=== PATIENT | female | born 1965 | race Caucasian/White ===

== ENCOUNTER 2018-12-27 16:08 | Emergency (ER) | payer BC, OTHER ==
--- NOTE | 2018-12-27 16:53 | ED ---
Psychiatric Complaint - HPI Summary HPI Summary: This pt is a 53 y/o female presenting to [facility] via EMS on a 9.41 for depression and possible overdose. Per EMS pt was found passed out by the enterprise architect. Pt admits to drinking a bottle of wine. She is unable to report if she took more pills than her regular medication. Per nurse's note, pt took too many wellbutrin pills (prescription filled on 12/25/18, 8 pills). Pt denies abd pain. Per nurse's note "pt states she wanted to drink herself to and drank wine and her regular wellbutrin dose." Per father, he spoke to the pt this morning and everything was fine. PMHx: depression for which she takes medications and states she takes "two" a day. Pt notes she lives alone with her 2 dogs. HPI IS LIMITED DUE TO LEVEL 5 CAVEAT - alcohol intoxication - History Of Current Complaint Chief Complaint: EDMentalHealth Time Seen by Provider: 12/27/18 16:24 Hx Obtained From: Patient, Family/Analytics Consultant - father, EMS Hx From Patient Unobtainable Due To: Other - level 5 caveat - alcohol intoxication Onset/Duration: Lasting Hours, Still Present Severity Currently: Moderate Character: Depressed Aggravating Factor(s): Alcohol Use, Drug Use Alleviating Factor(s): Nothing Related History: Positive For: Prior Psychiatric Issues Has Suicidal: Reports: Demonstrates Gesture - Allergies/Home Medications Allergies/Adverse Reactions: Allergies Allergy/AdvReac Type Severity Reaction Status Date / Time Penicillins Allergy Swelling Verified 12/27/18 17:01 Of Face,Lips,& Throat Home Medications: Home Medications Bisoprolol/Hydrochlorothiazide [Bisoprolol-Hctz 2.5-6.25 mg Tb] 1 tab PO DAILY 12/27/18 [History Confirmed 12/27/18] Citalopram TAB* [CeleXA TAB*] 30 mg PO DAILY 12/27/18 [History Confirmed ] buPROPion TAB* [Wellbutrin TAB*] 75 mg PO BID 12/27/18 [History Confirmed ] PMH/Surg Hx/FS Hx/Imm Hx Cardiovascular History: Denies: Other Cardiovascular Problems/Disorders Respiratory History: Denies: Other Respiratory Problems/Disorders GI History: Denies: Other GI Disorders History: Reports: Hx Kidney Stones - 2008; 12/11 Sensory History: Denies: Hx Contacts or Glasses, Hx Hearing Aid Opthamlomology History: Denies: Hx Contacts or Glasses Neurological History: Denies: Other Neuro Impairments/Disorders Psychiatric History: Reports: Hx Anxiety - ON MEDS Denies: Hx of Violent Episodes Against Others - Surgical History Surgery Procedure, Year, and Place: 2010, [facility], GASTRIC BYPASS. LEFT KNEE, 2005 , [facility]. RIGHT KNEE 1999, [facility]. ESWL, 2009 X2, [facility] Hx Anesthesia Reactions: No Infectious Disease History: No Infectious Disease History: Denies: Traveled Outside the [place] in Last 30 Days - Family History Family History: paternal grandmother with colon CA - Social History Alcohol Use: Daily Alcohol Amount: Drinks a bottle of wine a day Substance Use Type: Reports: None Smoking Status (MU): Never Smoked Tobacco Review of Systems - ROS Summary Review of Systems Summary: HPI IS LIMITED DUE TO LEVEL 5 CAVEAT - alcohol intoxication Negative: Fever Negative: Abdominal Pain Positive: Depressed All Other Systems Reviewed And Are Negative: No Physical Exam - Summary Physical Exam Summary: Appearance: Well appearing, no pain distress Skin: warm, dry, reflects adequate perfusion Head/face: normal Eyes: EOMI, CELESTE ENT: normal Neck: supple, nontender Respiratory: CTA, breath sounds present Cardiovascular: RRR, pulses symmetrical Abdomen: nontender, soft Musculoskeletal: normal, strength/ROM intact Neuro: normal, sensory motor intact, A&[id number] Psych: depressed affect Triage Information Reviewed: Yes Vital Signs On Initial Exam: Initial Vitals Temp Pulse Resp BP Pulse Ox 98.6 F 91 18 174/125 98 12/27/18 16:14 12/27/18 16:14 12/27/18 16:14 12/27/18 16:14 12/27/18 16:14 Vital Signs Reviewed: Yes Completion Of Physical Exam Limited Due To: Level 5 - alcohol intoxication Diagnostics - Vital Signs Vital Signs Temp Pulse Resp BP Pulse Ox 12/27/18 16:14 98.6 F 91 18 174/125 98 - Laboratory Result Diagrams: 12/27/18 16:40 12/27/18 16:40 Lab Statement: Any lab studies that have been ordered have been reviewed, and results considered in the medical decision making process. - EKG 16:51 Cardiac Rate: NL - at 74 bpm EKG Rhythm: Sinus Rhythm Summary of EKG Findings: No acute changes. Course/Dx - Course Assessment/Plan: Pt is a 53 y/o female who presents via EMS on a 9.41 for depression and possible overdose on Wellbutrin. Pt admits to drinking a bottle of wine. Per nurse's note, pt took too many wellbutrin pills (prescription filled on 12/25/18, 8 pills), pt unable to confirm this. Pt denies abd pain. Blood work, toxicology obtained. Serum alcohol of 462. Discussed pt care with Dr. Diaz, hospitalist, who accepted the pt for admission. Spoke with hospitalist, Dr. Diaz, and [employer] and they think pt did not overdose and do not want to admit. As per poison control, pt needs to be observed for 24 hours. Pt will then be in the ED for observation. Pt will be signed out to Dr. Herrera, pending medical clearance and subsequent MHE. - Differential Dx/Clinical Impression Differential Diagnosis/HQI/PQRI: Positive: Alcohol Intoxication, Depression, Drug Overdose/Intentional, Suicidal Ideation Provider Diagnosis: Drug overdose, Alcohol intoxication, Depression, Suicidal ideation - Physician Notifications Discussed Care Of Patient With: Tiki Diaz - hospitalist Time Discussed With Above Provider: 17:31 Instructed by Provider To: Other - Discussed pt care with Dr. Diaz, hospitalist , who accepted the pt for admission. Discharge - Sign-Out/Discharge Documenting (check all that apply): Sign-Out Patient Signing out patient TO: Froylan Herrera - pending medical clearance and MHE - Discharge Plan Condition: Stable Referrals: Jacklyn Garcia MD [Primary Care Provider] - - Attestation Statements Document Initiated by Scribe: Yes Documenting Scribe: Judi Vides Provider For Whom Scribe is Documenting (Include Credential): Stewart Pringle MD Scribe Attestation: Judi So, scribed for Stewart Pringle MD on 12/27/18 at 2131. Status of Scribe Document: Ready
[2018-12-27 16:55] LABS: ABS Basophils 0 10^3/ul (0-0.2); ABS Eosinophils 0 10^3/ul (0-0.6); ABS Lymphocytes 1.4 10^3/ul (1.0-4.8); ABS Monocytes 0.4 10^3/ul (0-0.8); ABS Neutrophils 2.9 10^3/ul (1.5-7.7); ABS Nucleated RBC 0 10^3/ul; Eosinophil % 0.8 %; Hematocrit 44 % (35-47); Hemoglobin 14.6 g/dl (12.0-16.0); Lymphocyte % 29.4 %; Mean Corpuscular HGB Conc 34 g/dl (31-36); Mean Corpuscular Hemoglobin 34 pg (27-31); Mean Corpuscular Volume 100 fL (80-97); Mean Platelet Volume 6.8 fL (7.4-10.4); Nucleated Red Blood Cells % 0; Platelet Count 262 10^3/ul (150-450); Red Blood Count 4.37 10^6/ul (4.00-5.40); Red Cell Distribution Width 14 % (10.5-15); White Blood Count 4.7 10^3/ul (3.5-10.8)
[2018-12-27 17:01] LABS: ALT 20 U/L (7-52); AST 34 U/L (13-39); Albumin 4.6 g/dL (3.2-5.2); Albumin/Globulin Ratio 1.4 (1-3); Alkaline Phosphatase 55 U/L (34-104); Anion Gap 4 mmol/L (2-11); BUN/Creatinine Ratio 15.5 (8-20); Blood Urea Nitrogen 9 mg/dL (6-24); CO2 Carbon Dioxide 32 mmol/L (22-32); Calcium 9.2 mg/dL (8.6-10.3); Chloride 106 mmol/L (101-111); EGFR African American 132.6 (>60); EGFR Non-African American 109.6 (>60); Globulin 3.3 g/dL (2-4); Glucose 101 mg/dL (70-100); Potassium 4.1 mmol/L (3.5-5.0); Sodium 142 mmol/L (135-145); Total Protein 7.9 g/dL (6.4-8.9)
[2018-12-27] MEDS ORDERED: NS 0.9% 1000 ML** 1,000 ML IV SCH (17:15)
[2018-12-27 17:35] LABS: Acetaminophen < 15 mcg/mL; Salicylate < 2.50 mg/dL (<30)
[2018-12-27 17:38] LABS: Alcohol 462 mg/dL (<10)
--- NOTE | 2018-12-27 21:41 | CONS ---
CC: Dr. Garcia * CONSULTATION REPORT: DATE OF CONSULT: 12/27/18 - EMERGENCY DEPT PROVIDER: Charles House NP ATTENDING PHYSICIAN: Dr. Diaz (report dictated by Charles House NP). REFERRING PHYSICIAN: Dr. Pringle, ER physician. PRIMARY CARE PROVIDER: Dr. Garcia. REASON FOR CONSULT: Recent alcohol intoxication with possible overdose. HISTORY OF PRESENT ILLNESS: Ms. Almanzar is a 53-year-old female with a past medical history of anxiety, depression, GERD, hypertension, gastric bypass, and long-term history of alcoholism, who presented to emergency department via EMS today, after she was found passed out by her director immunology. On EMS arrival, they had concern for an empty pill bottle on her counter in which she had a recent filled prescription for Wellbutrin, filled on 12/25/18 with a total of 8 pills. There was a concern that this empty bottle meant that she took all the pills intentionally. The patient also made the comments that she wants to drink herself to . Hospital Medicine was asked for a consultation regarding potential overdose. On my evaluation of the patient in the emergency department , she is found to be alert and oriented x3. She is found to be intoxicated and has a serum alcohol level of 462. However, even though she is intoxicated, she is found to be alert and oriented x3, and holding a reasonable conversation. Her father is at the bedside. The patient reports that the empty pill bottle was on her counter as a reminder to get her new refill next week. She reports that she took the 8 pills that were prescribed on 12/25/18 and placed them into her pillbox and took her normal dose of Wellbutrin today, which was 1 tablet. Her father confirms this story that she does have a pillbox that she uses for her pills. The patient denies suicidal ideation as well as denies taking any extra pills. It is noted on admission by the nurse's note, the patient also reports she only took her regular Wellbutrin dose. The ER did call Poison Control, who recommended the patient needed an EKG, blood panel including a magnesium, CBC, CMP, and tox levels as well as if the QRS is greater than 100 or QTc is greater than 500, they would need to be called back; otherwise, Poison Control did not need to be called back. The patient's labs are unremarkable as well as her EKG within normal limits. The patient is refusing admission to medical services and refuses treatment for her intoxication and for her alcoholism. She reports that she drinks approximately 6 glasses of wine a day and has done this for the past 10 years. She does not remember the last time she did not have a drink. She denies detox or withdrawal seizures. She reports she had a DUI in [address] She does admit that her alcoholism does create problems in her relationship with her family and friends. Again, she adamantly refuses rehab and/or treatment. She states "this is the way I want to live my life." Her father, López, is at the bedside and states that he supports her. He does not have any concerns at this time and does wish she would get treatment; however, he does not have concerns that she attempted overdose. Again, he corroborates with her story that she keeps a pillbox. The patient is refusing inpatient medical admission and she has capacity even though she is intoxicated to make this decision and I think that the patient would be better served having a mental health evaluation prior to discharge. The patient does not meet criteria to admit her involuntarily to the medical service. The patient was strongly advised to abstain from alcohol and the risks involved in excessive alcohol intake. PAST MEDICAL HISTORY: 1. Depression. 2. GERD. 3. Hypertension. 4. Status post esophageal dilatation. 5. History of long-term alcoholism. 6. Status post laparoscopic gastric bypass in 2009. CURRENT MEDICATIONS: 1. Omeprazole 20 mg p.o. daily. 2. Multivitamin with minerals 1 tab p.o. daily. 3. Bisoprolol/HCTZ 2.5/6.25 mg 1 tab p.o. daily. 4. Celexa 30 mg p.o. daily. 5. Wellbutrin 75 mg p.o. b.i.d. ALLERGIES: PENICILLIN. FAMILY HISTORY: Reports her father's father was an alcoholic. SOCIAL HISTORY: Reports 10 years of heavy drinking, reporting 2 drinks, approximately 6 glasses of wine a day. Denies recreational drug use. She lives alone with her 2 dogs. She lists her father as a healthcare proxy. REVIEW OF SYSTEMS: A 14-point of review of systems was performed. All the pertinent positives and negatives are mentioned in the history of present illness, otherwise is negative. PHYSICAL EXAM: Vital Signs: Temperature 98.6, heart rate 91, respirations 18, pulse oximetry 98% on room air, blood pressure 125/78. Appearance: A 53-year- old female, slightly overweight, alert and oriented x3, appears mildly intoxicated; however, able to hold a reasonable conversation. No acute distress noted. HEENT: Head is normocephalic, atraumatic. Pupils are equal and reactive to light. Oropharynx is clear. Moist mucous membranes. Good dentition. Neck is supple. Cardiac: S1, S2. Regular rate and rhythm. No murmur, rub, or gallop appreciated. Lungs are clear to auscultation bilaterally. Good aeration throughout. Abdomen is soft, nontender, nondistended. Normal bowel sounds throughout. Slightly obese. Musculoskeletal : No clubbing or cyanosis is noted. Full range of motion in all extremities. Strength is 5/5 throughout. Skin: No rash, lesions, or open wounds noted. Skin is warm, pink, dry. Neuro: Cranial nerves II through XII are grossly intact. Moves all extremities equally. Sensation to lower extremities intact to light touch, slight slurring of words. No focal deficits noted. Psych: Alert and oriented x3. Appears appropriate to the situation; however, she does appear to be slightly intoxicated. DIAGNOSTIC STUDIES/LAB DATA: WBC is 4.7, Hgb 14.6, Hct 44, MCV 100, MCH 34, MCHC 34, RDW is 14, platelet count 262. Sodium 142, potassium 4.1, chloride 106 , carbon dioxide 32, anion gap 4, BUN 9, creatinine 0.58, glucose 101, calcium 9.2, magnesium 2.0. Total bilirubin 0.30, AST 34, ALT 20, alkaline phosphatase 55. Total protein 7.9, albumin 4.6. TSH 1.10. Beta hCG 0.60. Serum alcohol 467. Acetaminophen less than 15, salicylates less than 2.5. EKG sinus rhythm with a rate of 74. ASSESSMENT AND PLAN: Ms. Almanzar is a 53-year-old female with a long-term history of alcoholism, who was brought into the emergency department after she was found passed out, brought to the ER via EMS and was found to have an alcohol level of 462. There was initial concern by EMS that she overdosed on her Wellbutrin, as she was noted to have a new prescription filled on 12/25/18 of 8 pills of Wellbutrin and there was an empty bottle found on her kitchen counter. Per the patient, she is adamant that she did not take any more than 1 of her Wellbutrin pills today and states that the rest of the prescription went into her pillbox. Per her father, who is at the bedside, who appears to be a reliable source, he can confirm this. The patient is refusing admission to the medical service and at this point that the patient does not meet criteria to admit her involuntarily to the medical service. I do recommend that she be evaluated by mental health services. Again, the patient was encouraged to seek treatment, which she is refusing at this time. Thank you for consulting the hospitalist service. If we could be of further help, please do not hesitate to contact us. TIME SPENT: Approximately 60 minutes was spent on this consultation. This case was discussed with Dr. Diaz, attending physician, who agrees with the plan of care. CHARLES HOUSE, [place] [id number]/CPS #: [id number] DIONICIO
--- NOTE | 2018-12-27 22:16 | ED ---
Progress - Progress Note Progress Note: Receiving sign out from Dr. Pringle, pending sobriety and MHE. Pt will be discharged home with final dx of alcohol intoxication and substance-induced mood disorder. - EKG/XRAY/CT EKG: NSR - 80 bpm, no ST T wave changes Comments: 2:30 Nl axis, nl intervals Re-Evaluation - Re-Evaluation First Eval Re-Evaluation Time: 05:00 Change: Unchanged Comment: Pt is medically cleared for a MHE. Course/Dx - Course Course Of Treatment: Nurse's notes reviewed. The patient sobered over several hours after being signed out to me. She is cleared for mental health evaluation. There is no evidence that she did take an overdose. Patient has accounting for all of her Wellbutrin at home. Following mental health evaluation the patient was cleared for outpatient referral and discharge by the psychiatrist. - Diagnoses Provider Diagnoses: Alcohol intoxication, Substance induced mood disorder - Provider Notifications Discussed Care Of Patient With: Nettie Martinez Time Discussed With Above Provider: 05:45 Instructed by Provider To: Other - Pt can be discharged. Discharge - Sign-Out/Discharge Documenting (check all that apply): Patient Departure - Discharge, Receiving Sign-Out Receiving patient FROM: Stewart Pringle - Discharge Plan Condition: Improved Disposition: HOME Patient Education Materials: Depression (DC), Abuse of Alcohol (DC), Anxiety ( ED) Referrals: Jacklyn Garcia MD [Primary Care Provider] - - Billing Disposition and Condition Condition: IMPROVED Disposition: Home - Attestation Statements Document Initiated by Scribe: Yes Documenting Scribe: Bethany Rene Provider For Whom Terrence is Documenting (Include Credential): Froylan Herrera MD Scribe Attestation: Bethany So, scribed for Froylan Herrera MD on 12/28/18 at 0603. Scribe Documentation Reviewed: Yes Provider Attestation: The documentation as recorded by the Bethany cherry accurately reflects the service I personally performed and the decisions made by me, Froylan Herrera MD Status of Scribe Document: Viewed
[2018-12-27 23:46] LABS: Urine Appearance Cloudy; Urine Color Yellow; Urine Specific Gravity 1.025 (1.010-1.030)
[2018-12-27 23:47] LABS: Urine Ketones Negative (Negative); Urine Urobilinogen Negative (Negative)
[2018-12-27 23:48] LABS: Urine Blood Negative (Negative); Urine Protein 1+(30 mg/dL) (Negative)
[2018-12-27 23:49] LABS: Urine Bilirubin Negative (Negative); Urine Nitrite Positive (Negative)
[2018-12-27 23:50] LABS: Urine Glucose Negative (Negative)
[2018-12-28 00:02] LABS: Urine Bacteria 3+ (Absent); Urine Red Blood Cell Trace(0-2/hpf) (Absent); Urine White Blood Cell 3+(>20/hpf) (Absent)
[2018-12-28 00:03] LABS: Urine Squamous Epithelial Cell Present (Absent)
[2018-12-28 00:06] LABS: Barbiturates Urine Screen None Detected (None Detect); Benzodiazepine Urine Screen None Detected (None Detect); Urine Cannabinoids Screen None Detected (None Detect)
[2018-12-28] MEDS ORDERED: cefTRIAXone(*) 1 GM in NS 0.9% 50 ML* 50 ML IVPB ONE (01:55)
[2018-12-28] MEDS ORDERED: Levofloxacin TAB* 750 MG ONE (02:18)
[2018-12-28] MEDS ORDERED: Levofloxacin TAB* 750 MG PO SCH (02:30)
[2018-12-28 05:53] VITALS: BP 147/86
--- NOTE | 2018-12-30 07:38 | PN ---
Progress Note - Progress Note Date of Service: 12/27/18 Note: Pt. seen in ED 12/27 for MHE. She was dc home and started on Levaquin for UTI. Preliminary urine culture today is growing >100,000 klebsiella. Pending susceptibility. No change in treatment needed at this time.
--- NOTE | 2018-12-31 06:31 | PN ---
Progress Note - Progress Note Date of Service: 12/27/18 Note: Urine culture final grew Klebsiella pneumonia 100,000 Patient was placed on Levaquin prior to discharge Sensitive organism No change in treatment is needed
== END 2018-12-28 05:55 | disposition home or self-care (01) ==
LOC: ED 16:08
DX: T43.291A Poisoning by other antidepressants, accidental (unintentional), initial encounter (principal); Y92.9 Unspecified place or not applicable; F10.120 Alcohol abuse with intoxication, uncomplicated; R45.851 Suicidal ideations; F32.9 Major depressive disorder, single episode, unspecified; N39.0 Urinary tract infection, site not specified; B96.1 Klebsiella pneumoniae [K. pneumoniae] as the cause of diseases classified elsewhere; F41.9 Anxiety disorder, unspecified; K21.9 Gastro-esophageal reflux disease without esophagitis; Z88.0 Allergy status to penicillin
CPT/HCPCS: 36415; 80053; 80307; 80320; 80329; 81003; 81015; 83735; 84443; 84702; 85025; 87077; 87086; 87186; 93005; 99284; A9270-GY; G0480